=== PATIENT | male | born 1980 | race Caucasian/White ===

== ENCOUNTER 2020-11-23 07:28 | Emergency (ER) | payer MEDICARE, MEDICAID ==
[~2020-11-23] VITALS: Ht 175.3 cm; Wt 58.4 kg
[~2020-11-23 07:28] MED LIST: ALBU8HFA PO; CLON-527 PO; FLUO20CA39 PO; OMEP-84 PO; PER5325T PO
[2020-11-23 07:33] VITALS: BP 128/89
[2020-11-23] MEDS ORDERED: AMOX-422 PO (08:12)
[2020-11-23] MEDS ORDERED: HYDR-3972 PO (08:12)
[2020-11-23] MEDS ORDERED: SULF1TAB49 PO (08:12)
[2020-11-23] MEDS ORDERED: sulfamethoxazole/trimethoprim DS (800/160mg) tablet PO ONE (08:15)
[2020-11-23] MEDS ORDERED: amox tr/potassium clavulanate 875/125mg TAB PO ONE (08:15)
== END 2020-11-23 08:00 | disposition home or self-care (01) ==
LOC: ER 07:29
DX: K13.0 Diseases of lips (principal); J45.909 Unspecified asthma, uncomplicated; G89.29 Other chronic pain; F32.9 Major depressive disorder, single episode, unspecified; F12.90 Cannabis use, unspecified, uncomplicated; F17.200 Nicotine dependence, unspecified, uncomplicated; Z98.890 Other specified postprocedural states; Z56.0 Unemployment, unspecified; Z88.1 Allergy status to other antibiotic agents; Z79.2 Long term (current) use of antibiotics; Z79.899 Other long term (current) drug therapy
CPT/HCPCS: 99283

== ENCOUNTER 2024-11-26 08:55 | Emergency (ER) | payer MEDICARE, MEDICAID ==
[~2024-11-26] VITALS: Ht 175.3 cm; Wt 58.8 kg
[~2024-11-26 08:55] MED LIST changes: -FLUO20CA39 PO; +FLUO20CA41 PO
[2024-11-26 09:02] VITALS: BP 128/93; PULSE 74; RESP 15; TEMP 97; O2SAT 99
--- NOTE | 2024-11-26 09:15 | Physician Documentation ---
History of Present Illness ~ Chief Complaint: Blurred Vision Stated Complaint: EYE PAIN Time Seen by MD: 09:14 Primary Medical Doctor: Ellie HPI Patient is a 44-year-old male that presents to the emergency department for evaluation of left eye pain times 12 hours. Patient reports that he was assisting his daughter and building a markers tower yesterday when she collapsed the tower and accidentally poked him in the left eye. Patient reports that his eye has been painful and watering since that time patient denies any visual disturbances or changes but does report that his eye is very painful. Medication Reconciliation Allergies: Coded Allergies: Cephalexin (Unverified Allergy, 03/30/11) Scheduled Clonazepam* (Klonopin*), 1 MG PO TID, (Reported) Fluoxetine Hcl* (Prozac*), 20 MG PO DAILY, (Reported) Omeprazole* (Prilosec*), 20 MG PO DAILY AC, (Reported) Oxycodone Hcl/Acetaminophen 5/325 MG* (Percocet 5/325 MG*), 2 TAB PO Q6H PRN, (Reported) Polymyxin B Sulfate/Tmp Opth* (Polytrim Ophthalmic Drops*), 1 DRP EACHEYE Q4H Scheduled PRN albuterol inhaler (Pro-Air Inhaler), 1-2 PUFFS PO Q4H PRN for SOB or wheezing Past Medical History Past Medical History: Asthma, Chronic Pain, Depression Past Surgical History: orthopedic surgeries Alcohol Use: None Drug Use: marijuana Lives with: Mother Lives In: Home Occupation: unemployed Review of Systems ROS As stated above in the HPI, otherwise all systems are reviewed and negative. Physical Exam Vital Signs: Temperature: 97.0, Source: Temporal, Heart Rate: 74, Respiratory Rate: 15, BP: 128/93, Pulse Oximetry: 99, Weight: 58.800 Physical Exam VITALS: Reviewed and as above. GENERAL: Alert, no apparent distress. HEENT: Normocephalic, atraumatic, PERRL, EOMI, dry mucosa, excessive tearing and injected conjunctiva to left eye, obvious sign of foreign body or injury at this time. RESPIRATORY: Lungs clear, normal breath sounds, no respiratory distress. CHEST: No accessory muscle use, no retractions CV: Regular rate, rhythm, no edema, no murmur, No: JVD GI: Soft, non-tender, bowels sounds present, no rebound, guarding, or rigidity BACK: No CVA tenderness, or swelling MUSCULOSKELETAL No deformities, no edema SKIN: Warm and dry, no rash NEURO: Oriented x4, No motor or sensory deficit PSYCH: Normal mood and affect, no agitation Progress Results/Orders Results/Orders Orders - NIGA eFlicia MARX General Nursing Order (11/26/24 09:53) Completed Orders - GA DAN [employer] Proparacaine Ophth Solution (Alcaine Oph (11/26/24 09:40) Vital Signs 11/26/24 09:02 Temp 97.0 Pulse 74 Resp 15 B/P (MAP) 128/93 Pulse Ox 99 Medical Decision Making Findings The Pt presents with left eye pain likely due to a corneal abrasion seen on fluorescein staining of eye. The Pt is otherwise well-appearing without evidence of retained foreign body, corneal ulcer, globe rupture, or superimposed infection. Prescribed antibiotics and instructed the Pt to follow up closely with ophthalmology and avoid wearing contacts. Patient will follow up with his primary care provider and with Ophthalmology. Patient will return to the emergency department with any worsening of his current symptoms or any ad ditional concerning symptoms that we discussed here today i.e. increased redness increased increased swelling vision changes headache significant pain or any other concerning symptoms. Differential Dx:Considerations: Include: dehydration, Delirium Tr., DKA, encephalopathy, hypercalcemia, HHNC, hypoglycemia, hypernatremia, hyponatremia, hypoxia, postictal, closed head injury, C-spine injury, CVA, mass lesion, subarachnoid hemorrhage, drug overdose, encephalopathy, ETOH intoxication, med ication toxicity, infection - meningitis, infection - sepsis, infection - UTI, heart failure, renal failure, respiratory failure, hyperthermia, hypothermia, other Departure Disposition: HOME / SELF CARE / HOMELESS Impression: Primary Impression: Corneal abrasion Additional Impressions: Tearing eyes Pain Redness of left eye Condition: Stable Discharge Instructions: Corneal Abrasion, [id number] Additional Instructions: The Pt presents with left eye pain likely due to a corneal abrasion seen on fluorescein staining of eye. The Pt is otherwise well-appearing without evidence of retained foreign body, corneal ulcer, globe rupture, or superimposed infection. Prescribed antibiotics and instructed the Pt to follow up closely with ophthalmology and avoid wearing contacts. Patient will follow up with his primary care provider and with Ophthalmology. Patient will return to the emergency department with any worsening of his current symptoms or any additional concerning symptoms that we discussed here today i.e. increased redness increased increased swelling vision changes headache significant pain or any other concerning symptoms. Referrals: NO PRIMARY CARE PROVIDER (PCP) Prescriptions Polymyxin B Sulfate/Tmp Opth* (Polytrim Ophthalmic Drops*) 10 Ml Bottle 1 DRP EACHEYE Q4H for 7 Days, #1 EACH Prov: GA DAN 11/26/24 Education Educated: Patient Educated regarding: diagnosis, treatment, need for follow up Signature Scribe Signature: A Attestation: Scribed for Ga Dan by ARASELI Marie . 11/26/24 09:43 GA DAN Nov 26, 2024 09:15
[2024-11-26] MEDS ORDERED: POLOS EACHEYE (09:42)
[2024-11-26] MEDS: proparacaine 0.5% ophthalmic drops 15ml EACHEYE ONE (10:04)
== END 2024-11-26 10:11 | disposition home or self-care (01) ==
LOC: ER 08:56
DX: S05.32XA Ocular laceration without prolapse or loss of intraocular tissue, left eye, initial encounter (principal); S05.02XA Injury of conjunctiva and corneal abrasion without foreign body, left eye, initial encounter; J45.909 Unspecified asthma, uncomplicated; G89.29 Other chronic pain; F32.A Depression, unspecified; F12.90 Cannabis use, unspecified, uncomplicated; Z56.0 Unemployment, unspecified; Z98.890 Other specified postprocedural states; Z88.1 Allergy status to other antibiotic agents; Z79.899 Other long term (current) drug therapy; X58.XXXA Exposure to other specified factors, initial encounter; Y93.89 Activity, other specified; Y92.89 Other specified places as the place of occurrence of the external cause; Y99.8 Other external cause status
CPT/HCPCS: 99283; A6410